=== PATIENT | male | born 1965 | race Caucasian/White ===

== ENCOUNTER 2016-07-13 21:35 | Emergency (ER) | payer MEDICAID ==
[~2016-07-13] VITALS: Ht 172.7 cm; Wt 81.0 kg
[~2016-07-13 21:35] MED LIST: ASPI-556; LISI-661 PO; METF850T2 PO
[2016-07-14 01:14] VITALS: BP 118/77
[2016-07-14] MEDS ORDERED: BACITRACIN 0.9 GM PACKET OINTMENT TP ONE (01:15)
[2016-07-14] MEDS ORDERED: PERTUSS(ACELL),DIPH,TET VAC/PF 0.5 ML VIAL IM ONE (01:15)
[2016-07-14] MEDS ORDERED: HYDROGEN PEROXIDE 118 ML SOLUTION TP ONE (01:15)
== END 2016-07-14 01:20 | disposition home or self-care (01) ==
LOC: EMS 21:36
DX: S41.151A Open bite of right upper arm, initial encounter (principal); E11.9 Type 2 diabetes mellitus without complications; I10 Essential (primary) hypertension; F17.210 Nicotine dependence, cigarettes, uncomplicated; Z79.82 Long term (current) use of aspirin; W54.0XXA Bitten by dog, initial encounter; Y93.89 Activity, other specified; Y92.89 Other specified places as the place of occurrence of the external cause; Y99.8 Other external cause status
CPT/HCPCS: 90471; 90715; 99283; 99406

== ENCOUNTER 2017-10-11 12:01 | Emergency (ER) | payer MEDICAID ==
[~2017-10-11] VITALS: Ht 172.7 cm; Wt 95.5 kg
[~2017-10-11 12:01] MED LIST changes: -ASPI-556; +ASPI-556 PO
[2017-10-11] MEDS ORDERED: CLON.5 PO (12:15)
[2017-10-11 12:18] LABS: GLUCOSE,POINT OF CARE 392 MG/DL (70-110)
[2017-10-11] MEDS ORDERED: SODIUM CHLORIDE 0.9% 1,000 ML IV ONE (12:35)
[2017-10-11] MEDS ORDERED: DiphenhydrAMINE HCL 50 MG/ML VIAL IVP ONE (12:45)
[2017-10-11] MEDS ORDERED: METOCLOPRAMIDE HCL 5 MG/ML 2 ML VIAL IVP ONE (12:45)
[2017-10-11] MEDS ORDERED: INSULIN REGULAR, HUMAN 100 UNITS/ML IVP ONE (12:45)
[2017-10-11] MEDS ORDERED: KETOROLAC TROMETHAMINE 30 MG/ML VIAL IVP ONE (12:45)
[2017-10-11 14:03] LABS: GLUCOSE,POINT OF CARE 142 MG/DL (70-110)
[2017-10-11 14:28] VITALS: BP 142/91
== END 2017-10-11 14:46 | disposition home or self-care (01) ==
LOC: EMS 12:02
DX: R51 Headache (principal); F17.210 Nicotine dependence, cigarettes, uncomplicated; I10 Essential (primary) hypertension; E11.9 Type 2 diabetes mellitus without complications; F41.9 Anxiety disorder, unspecified; F32.9 Major depressive disorder, single episode, unspecified
CPT/HCPCS: 82962; 96361; 96374; 96375; 99284; 99406; J1200; J1815; J1885; J2765; J7030

== ENCOUNTER 2018-03-02 18:18 | Emergency (ER) | payer MEDICAID ==
[~2018-03-02] VITALS: Ht 172.7 cm; Wt 100.0 kg
[~2018-03-02 18:18] MED LIST changes: +CLON.5 PO; +METF-445 PO; -METF850T2 PO
[2018-03-02 18:34] LABS: GLUCOSE,POINT OF CARE 221 MG/DL (70-110)
[2018-03-02 19:14] LABS: BASOPHILS % (AUTO) 0.6 % (0.0-2.0); EOSINOPHILS % (AUTO) 2.8 % (1.0-6.0); HEMATOCRIT 47.9 % (41-53); HEMOGLOBIN 16.8 g/dL (13.5-17.5); LYMPHOCYTES # (AUTO) 2.9 K/uL (1.0-4.8); LYMPHOCYTES % (AUTO) 35.6 % (22.0-44.0); MEAN CORPUSCULAR HEMOGLOBIN 32.1 pg (26.0-34.0); MEAN CORPUSCULAR VOLUME 92 fL (80-100); MONOCYTES # (AUTO) 0.6 K/uL (0.1-1.0); MONOCYTES % (AUTO) 6.9 % (2.0-9.0); NEUTROPHILS # (AUTO) 4.4 K/uL (1.8-7.7); NEUTROPHILS % (AUTO) 54.1 % (40.0-70.0); PLATELET COUNT (AUTO) 218 K/uL (150-450); RED BLOOD CELL COUNT(AUTO) 5.21 MIL/uL (4.50-5.90); RED CELL DISTRIBUTION WIDTH 12.7 % (11.5-14.5)
[2018-03-02 19:21] LABS: ANION GAP 5 mmol/L (8-16); CALCIUM, TOTAL 8.8 mg/dL (8.8-10.5); CARBON DIOXIDE 30 mmol/L (22-29); CHLORIDE 97 mmol/L (98-107); CREATININE 1.13 mg/dL (0.60-1.30); GLOMERULAR FILTR. RATE CALC > 60 mL/min (>60); GLUCOSE,RANDOM 335 mg/dL (70-110); POTASSIUM 3.9 mmol/L (3.5-5.1); SODIUM SERUM 132 mmol/L (136-145); UREA NITROGEN, BLOOD 16 mg/dL (7-18)
[2018-03-02 19:28] LABS: ALANINE AMINOTRANSFERASE 58 U/L (12-78); ALBUMIN 3.4 g/dL (3.4-5.0); ALKALINE PHOSPHATASE 57 U/L (46-116); ASPARTATE AMINOTRANSFERASE 20 U/L (15-37); BILIRUBIN,TOTAL 0.2 mg/dL (0.1-1.0)
[2018-03-02] MEDS ORDERED: SODIUM CHLORIDE 0.9% 1,000 ML IV ONE (19:45)
[2018-03-02] MEDS ORDERED: INSULIN REGULAR, HUMAN 100 UNITS/ML IVP ONE (19:45)
[2018-03-02 19:59] LABS: APPEARANCE,URINE CLEAR (CLEAR); BILIRUBIN,URINE NEGATIVE (NEGATIVE); GLUCOSE, URINE (UA) >=1000 mg/dL (NEGATIVE); KETONES,URINE NEGATIVE (NEGATIVE); LEUKOCYTE ESTERASE ,URINE NEGATIVE (NEGATIVE); NITRATE,URINE NEGATIVE (NEGATIVE); OCCULT BLOOD,URINE NEGATIVE (NEGATIVE); PROTEIN,URINE NEGATIVE (NEGATIVE); UROBILINOGEN,URINE 0.2 mg/dL (<=1.0)
[2018-03-02 20:33] LABS: GLUCOSE,POINT OF CARE 314 MG/DL (70-110)
[2018-03-02 20:44] LABS: BACTERIA,URINE None Seen /HPF (None Seen); RBC,URINE None Seen /HPF (0-2); SQUAMOUS EPITHELIAL CELL,UR Rare /LPF (None Seen); WBC,URINE 0-2 /HPF (0-5)
[2018-03-02 20:45] LABS: YEAST,URINE Rare /HPF (None Seen)
[2018-03-02] MEDS ORDERED: KETOROLAC TROMETHAMINE 30 MG/ML VIAL IVP ONE (20:45)
[2018-03-02 21:30] VITALS: BP 138/80
[2018-03-02 21:38] LABS: GLUCOSE,POINT OF CARE 251 MG/DL (70-110)
== END 2018-03-02 21:32 | disposition home or self-care (01) ==
LOC: EMS 18:19
DX: E11.65 Type 2 diabetes mellitus with hyperglycemia (principal); R10.32 Left lower quadrant pain; M54.5 Low back pain; F17.210 Nicotine dependence, cigarettes, uncomplicated; F32.9 Major depressive disorder, single episode, unspecified; F41.9 Anxiety disorder, unspecified; I10 Essential (primary) hypertension; Z79.82 Long term (current) use of aspirin; Z79.84 Long term (current) use of oral hypoglycemic drugs; Z79.899 Other long term (current) drug therapy
CPT/HCPCS: 36415; 74176; 80053; 81001; 82962; 85025; 96374; 96375; 99285; 99406; J1815; J1885; J7030

== ENCOUNTER 2019-05-19 03:41 | Emergency (ER) | payer MEDICAID, OTHER ==
[~2019-05-19] VITALS: Ht 172.7 cm; Wt 100.0 kg
[2019-05-19 04:34] LABS: GLUCOSE,POINT OF CARE 371 MG/DL (70-110)
[2019-05-19] MEDS ORDERED: ASPI81 PO (05:26)
[2019-05-19] MEDS ORDERED: LISI-661 PO (05:26)
[2019-05-19] MEDS ORDERED: METF-960 PO (05:26)
[2019-05-19] MEDS ORDERED: GLIP5 PO (05:26)
[2019-05-19] MEDS ORDERED: SODIUM CHLORIDE 0.9% 2,000 ML IV ONE (06:12)
[2019-05-19] MEDS ORDERED: GlipiZIDE 5 MG TABLET PO ONE (06:15)
[2019-05-19] MEDS ORDERED: MetFORMIN HCL 500 MG TABLET PO ONE (06:15)
[2019-05-19] MEDS ORDERED: INSULIN REGULAR, HUMAN 100 UNITS/ML IVP ONE (06:15)
[2019-05-19 06:32] LABS: BASOPHILS % (AUTO) 0.7 % (0.0-2.0); EOSINOPHILS % (AUTO) 0.9 % (1.0-6.0); HEMATOCRIT 43.8 % (41-53); HEMOGLOBIN 15.2 g/dL (13.5-17.5); LYMPHOCYTES # (AUTO) 2.5 K/uL (1.0-4.8); LYMPHOCYTES % (AUTO) 39.3 % (22.0-44.0); MEAN CORPUSCULAR HEMOGLOBIN 31.8 pg (26.0-34.0); MEAN CORPUSCULAR HGB CONC 34.8 G/dL (31.0-37.0); MEAN CORPUSCULAR VOLUME 92 fL (80-100); MONOCYTES # (AUTO) 0.7 K/uL (0.1-1.0); MONOCYTES % (AUTO) 11.3 % (2.0-9.0); NEUTROPHILS % (AUTO) 47.8 % (40.0-70.0); PLATELET COUNT (AUTO) 196 K/uL (150-450); RED BLOOD CELL COUNT(AUTO) 4.78 MIL/uL (4.50-5.90); RED CELL DISTRIBUTION WIDTH 12.7 % (11.5-14.5)
[2019-05-19 06:41] LABS: ANION GAP 7 mmol/L (8-16); CALCIUM, TOTAL 8.8 mg/dL (8.8-10.5); CARBON DIOXIDE 27 mmol/L (22-29); CHLORIDE 100 mmol/L (98-107); CREATININE 0.96 mg/dL (0.60-1.30); GLOMERULAR FILTR. RATE CALC > 60 mL/min (>60); GLUCOSE,RANDOM 307 mg/dL (70-110); POTASSIUM 4.4 mmol/L (3.5-5.1); SODIUM SERUM 134 mmol/L (136-145); UREA NITROGEN, BLOOD 13 mg/dL (7-18)
[2019-05-19 06:47] LABS: ALANINE AMINOTRANSFERASE 51 U/L (12-78); ALBUMIN 3.4 g/dL (3.4-5.0); ALKALINE PHOSPHATASE 53 U/L (46-116); ASPARTATE AMINOTRANSFERASE 24 U/L (15-37); BILIRUBIN,TOTAL 0.3 mg/dL (0.1-1.0); LIPASE 144 U/L (73-393); TOTAL PROTEIN, SERUM 6.5 g/dL (6.4-8.2)
[2019-05-19 06:50] LABS: B-TYPE NATRIURETIC PEPTIDE 10 pg/mL (0-100)
[2019-05-19 09:25] VITALS: BP 131/80
[2019-05-19] MEDS ORDERED: BENZONATATE 100 MG CAPSULE PO ONE (09:45)
[2019-05-19 09:50] LABS: GLUCOSE,POINT OF CARE 125 MG/DL (70-110)
[2019-05-19 09:52] LABS: APPEARANCE,URINE CLEAR (CLEAR); BILIRUBIN,URINE NEGATIVE (NEGATIVE); GLUCOSE, URINE (UA) 250 mg/dL (NEGATIVE); KETONES,URINE NEGATIVE (NEGATIVE); LEUKOCYTE ESTERASE ,URINE NEGATIVE (NEGATIVE); NITRATE,URINE NEGATIVE (NEGATIVE); OCCULT BLOOD,URINE NEGATIVE (NEGATIVE); PROTEIN,URINE NEGATIVE (NEGATIVE); UROBILINOGEN,URINE 0.2 mg/dL (<=1.0)
[2019-05-19 10:01] LABS: BACTERIA,URINE None Seen /HPF (None Seen); RBC,URINE None Seen /HPF (0-2); WBC,URINE None Seen /HPF (0-5)
== END 2019-05-19 10:24 | disposition home or self-care (01) ==
LOC: EMS 03:41
DX: J40 Bronchitis, not specified as acute or chronic (principal); E11.9 Type 2 diabetes mellitus without complications; I10 Essential (primary) hypertension; F17.210 Nicotine dependence, cigarettes, uncomplicated; F32.9 Major depressive disorder, single episode, unspecified; F41.9 Anxiety disorder, unspecified
CPT/HCPCS: 36415; 80053; 81001; 82962; 83690; 83880; 84484; 85025; 96374; 99284; 99406; J1815